=== PATIENT | male | born 1970 | race Caucasian/White ===

== ENCOUNTER → 2018-10-15 11:10 | Outpatient (CLI) | payer OTHER, SELFPAY ==
--- NOTE | 2018-10-16 11:07 | P.PCN_ITS ---
Cardiac Stress Test Report Referral & Results Date Patient Seen: 10/16/18 Requesting provider: Maurice Wilkins Indication: Hypertension Rest ECG: Unremarkable Procedure Note: Today following both written and verbal informed consent the patient was exercised according to a standard Will protocol patient went for a total of 10 minutes 31 seconds achieving a maximum heart rate of 175 (motion artifact prevents exact monitoring of heart rate) maximum systolic blood pressure of 182. This is approximately 12.8 METS. Exercise was terminated at this point because of targets were met. Patient was also given Cardiolite through a previously started Hep-Lock IV by the nuclear monitoring technician approximately 1 minute prior to the cessation of exercise. No ST-T segment changes identified. Patient with tremendous amount of motion artifact while exercising but immediately upon cessation of exercise no ST-T changes Normal heart rate and blood pressure response to exercise Functional aerobic impairment rate 0 the active scale Impression: No evidence of ischemia Average exercise capacity Please see perfusion imaging report as well. Please note: Actual ECG tracings can be found in the PACS system.
--- NOTE | 2018-10-16 15:59 | DI.NM.S_ITS ---
DATE OF SERVICE: 10/15/2018 PROCEDURE PERFORMED: Exercise treadmill stress and rest myocardial perfusion imaging study with gating to assess ejection fraction and regional wall motion. ORDERING PROVIDER: Maurice Wilkins MD INDICATIONS: The patient is a 48-year-old male with a history of stroke, now it has chest and arm discomfort. EXERCISE TREADMILL TESTING: The patient was able to exercise for a total of 10 minutes 31 seconds on a standard Will protocol suggesting average exercise capacity with an KALEIGH of 0% on the active scale. He had a normal heart rate response and blood pressure response to exercise, achieving a maximum heart rate of 165 bpm (95% of his predicted maximum). He had no chest discomfort. His resting ECG is normal, demonstrating normal sinus rhythm. His exercise tracings are profoundly corrupted by significant motion artifact but the immediate recovery ECG's show no significant ST-segment shifts. There were no obvious arrhythmias but motion artifact limits the interpretation. At 9 minutes 34 seconds of exercise, 21.2 mCi of technetium-99 Myoview was injected and the patient was imaged 20 minutes later using a gated SPECT acquisition protocol. He returned the following day and was reinjected with an additional 21.8 mCi of technetium-99 Myoview and was imaged 30 minutes later, again using a gated SPECT acquisition protocol. FINDINGS: 1. Raw Data: There is fairly good myocardial tracer uptake. The lung/heart ratio is normal at 0.37 with a normal TID ratio of 0.80. 2. Quantitative Gated SPECT: Post stress ejection fraction is estimated at 73% without any focal wall motion abnormality and specifically, the septum appears to have normal contractility. The resting ejection fraction is 66% with a normal resting end-diastolic volume of 104 mL. 3. Myocardial Perfusion Imaging: Post stress supine images show a fairly normal myocardial perfusion pattern although there is a very subtle defect in the mid anterior septum that essentially resolves on prone imaging suggesting that it reflects attenuation artifact. There are no other perfusion defects. The resting images show a similar perfusion pattern, again with a very subtle defect in the mid-septum but no clear areas of significant improvement. CONCLUSIONS: 1. Probable normal myocardial perfusion study. 2. Subtle fixed mid-septal defect that essentially resolves on prone imaging and most likely reflects an anatomical variant. There is no compelling evidence for significant myocardial ischemia or previous myocardial infarction. 3. Normal left ventricular systolic function without focal wall motion abnormality. 4. Average exercise capacity without angina or obvious ECG evidence of ischemia. Register, Sawyer - Rufino/ doc#: [id number]/job#: [id number] dd: 10/16/2018 12:43:00 dt: 10/16/2018 15:04:00 DICTATING MD/COPIES TO: Koby Pickens MD; Maurice Wilkins MD COPIES MNE: ALEX JOSE
== END ==
PROVIDERS: PCP Family Medicine; Visit Provider Family Medicine
DX: R07.89 Other chest pain (principal); M79.603 Pain in arm, unspecified; I10 Essential (primary) hypertension; Z86.73 Personal history of transient ischemic attack (TIA), and cerebral infarction without residual deficits
CPT/HCPCS: 78452; 93016; 93017; 93018; A9502